=== PATIENT | female | born 1980 | race Caucasian/White ===

== ENCOUNTER 2021-03-19 20:29 | Inpatient (IN) ==
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
[2021-03-19] MEDS ORDERED: 0.9 % SODIUM CHLORIDE 1,000 ML IV ONE ×2 (21:22→22:24)
[2021-03-19] MEDS ORDERED: INSULIN REGULAR, HUMAN 1 UNIT/0.01 ML UNIT IV ONE ×2 (21:22→22:38)
[2021-03-19 21:48] LABS: POC Calcium, Ionized 1.26 mmEq/L (1.16-1.32); POC Creatinine 0.4 mg/dL (0.6-1.2); POC Potassium 3.5 mEql/L (3.3-5.1)
[2021-03-19] MEDS ORDERED: 0.9 % SODIUM CHLORIDE 1,000 ML IV SCH (23:00)
[2021-03-19] MEDS ORDERED: INSULIN REGULAR, HUMAN 50 UNIT in 0.9 % SODIUM CHLORIDE 99.5 ML IV SCH (23:00)
[2021-03-19] MEDS ORDERED: ONDANSETRON 4 MG/2 ML VIAL IV PRN (23:39)
[2021-03-19 23:47] LABS: ABG Methemoglobin 0 % (0.4-1.5); Total Hemoglobin 12.4 gm/Dl (12.0-15.0); VBG Base Excess -16 (-2-2); VBG HCO3 10.4 mmol/L (24.0-28.0); VBG Oxygen Saturation 84.9 % (40.0-70.0); VBG PCO2 25.7 mmHg (41.0-51.0); VBG PH 7.22 U (7.32-7.42); VBG PO2 57.5 mmHg (25.0-40.0); VBG Total CO2 11.2 mmol/L (25.0-29.0)
[2021-03-20] MEDS: DEXTROSE 5%-1/2NS 1,000 ML IV SCH ×3 (00:03→18:26)
[2021-03-20] MEDS: 0.9 % SODIUM CHLORIDE 250 ML IV SCH ×2 (00:05→12:36)
[2021-03-20] MEDS: 0.9 % SODIUM CHLORIDE 10 ML SYRINGE IV SCH ×5 (05:35→21:17)
[2021-03-20 07:38] LABS: Basophils # (Auto) 0.08 K/mcL (0.00-0.30); Basophils % (Auto) 1.2 % (0.0-2.0); Eosinophils # (Auto) 0.18 K/mcL (0.00-0.70); Eosinophils % (Auto) 2.7 % (0.0-7.0); Hematocrit 34.5 % (34.1-44.9); Hemoglobin 12.6 g/dL (11.2-15.7); Lymphocytes # (Auto) 2.53 K/mcL (1.50-4.80); Lymphocytes % (Auto) 38.4 % (15.5-49.0); Mean Corpuscular HGB Conc 36.5 g/dL (31.0-36.0); Mean Platelet Volume 9.1 fL (7.4-10.4); Monocytes # (Auto) 0.74 K/mcL (0.10-0.90); Monocytes % (Auto) 11.2 % (1.0-12.0); Neutrophils % (Auto) 46.5 % (38.0-78.0); Platelet Count 332 K/mcL (140-440); RBC 4.06 M/mcL (3.59-5.38); Red Cell Distribution Width 11.9 % (11.5-14.5); WBC 6.6 K/mcL (4.5-11.0)
[2021-03-20 08:08] LABS: ALT/SGPT 8 U/L (<40); AST/SGOT 9 U/L (<32); Albumin 2.8 gm/dL (3.2-5.2); Albumin/Globulin Ratio 1.3 (1.0-2.3); Alkaline Phosphatase 88 U/L (39-117); Bilirubin,Direct < 0.2 mg/dL (0-0.3); Bilirubin,Total 0.3 mg/dL (0.1-1.0); Blood Urea Nitrogen 7 mg/dL (6-20); Calcium 7.7 mg/dL (8.6-10.4); Carbon Dioxide 14 mmol/L (22-30); Chloride 109 mmol/L (96-108); Globulin 2.2 gm/dL (2.2-3.7); Glomerular Filtration Rate 120; Glucose 91 mg/dL (70-105); Lactate Dehydrogenase 101 U/L (135-225); Phosphorous 1.9 mg/dL (2.5-4.5); Triglycerides 78 mg/dL (<150); Uric Acid 2.5 mg/dL (2.5-8.0)
[2021-03-20] MEDS ORDERED: POTASSIUM CHLORIDE 20 MEQ TABLET PO ONE (08:16)
[2021-03-20] MEDS ORDERED: POTASSIUM CHLORIDE 20 MEQ PACKET PO PRN (08:17)
[2021-03-20] MEDS ORDERED: MAGNESIUM SULFATE 2 GM/50 ML BAG IV ONE (08:17)
[2021-03-20] MEDS ORDERED: BISACODYL 10 MG SUPP.RECT PR PRN (08:17)
[2021-03-20] MEDS ORDERED: MELATONIN 3 MG TABLET PO PRN (08:17)
[2021-03-20] MEDS ORDERED: POLYETHYLENE GLYCOL 3350 17 GM PACKET PO PRN (08:17)
[2021-03-20] MEDS ORDERED: ONDANSETRON 4 MG/2 ML VIAL IV PRN (08:17)
[2021-03-20] MEDS ORDERED: ONDANSETRON 4 MG ODT TABLET SL PRN (08:17)
[2021-03-20] MEDS ORDERED: MAGNESIUM SULFATE 2 GM/50 ML BAG IV PRN (08:17)
[2021-03-20] MEDS ORDERED: ACETAMINOPHEN 325 MG TABLET PO PRN (08:17)
[2021-03-20] MEDS ORDERED: POTASSIUM CHLORIDE 40 MEQ in DEXTROSE 5% IN WATER 500 ML IV PRN (08:17)
[2021-03-20] MEDS ORDERED: ACETAMINOPHEN 650 MG/65 ML BAG IV PRN (08:17)
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
[2021-03-20 08:54] LABS: ABG Methemoglobin 0.3 % (0.4-1.5); Total Hemoglobin 12.6 gm/Dl (12.0-15.0); VBG Base Excess -11 (-2-2); VBG HCO3 14.4 mmol/L (24.0-28.0); VBG Oxygen Saturation 74.8 % (40.0-70.0); VBG PCO2 32.2 mmHg (41.0-51.0); VBG PH 7.27 U (7.32-7.42); VBG PO2 38.8 mmHg (25.0-40.0); VBG Total CO2 15.4 mmol/L (25.0-29.0)
[2021-03-20] MEDS ORDERED: POTASSIUM PHOSPHATE 20 MEQ in DEXTROSE 5% IN WATER 250 ML IV ONE (09:00)
[2021-03-20] MEDS ORDERED: POTASSIUM CHLORIDE 80 MEQ in DEXTROSE 5% IN WATER 1,000 ML IV ONE (09:00)
[2021-03-20] MEDS: DOCUSATE SODIUM 100 MG CAPSULE PO SCH ×2 (09:39→21:16)
--- NOTE | 2021-03-20 10:42 | Internal Med Progress Note ---
SUBJECTIVE Subjective Patient information: Note initiated : 03/20/21 at 10:39 am Service Date, if different from initiated Date: [] Patient: Mary Gardner a 40 y/o F admitted on 03/19/21 for High Blood Sugar. Chief Complaint: [] Interval history: Ms. Gardner is a 40 year old F With a history of type 1 diabetes. She has been on insulin for last 3 years and has had one episode of DKA. Over the last few days she has noted URI symptoms after getting exposed to family members were sick with upper respiratory symptoms. For the last 2 days she has had increased loss of appetite, weakness, unable to eat or drink and associated nausea. She endorses to weakness, lightheadedness, feeling dehydrated. Presents to the ER for evaluation. Initial work-up was consistent with DKA with a pH of 7.19, elevated anion gap and low bicarbonate. Patient was started on insulin drip and subsequently hospitalist service was consulted. At the time of my evaluation patient is alert and oriented. She was able to answer most the questions. She feels slightly anxious. She endorses history as above but denies skipping medications or changing medication doses. She further denies weight loss, diarrhea, bloody stool, hemoptysis, glandular swelling. She had Covid 5 months ago 03/20-patient doing well. Currently on insulin drip. pH improved to 7.27. Potassium 2.7 on replacement, phosphorus 1.9 started placement, continue insulin drip. Will likely transition to subcu insulin once anion gap normalizes and bicarb over 18. Continue ICU care Constitutional Vitals: Vital Signs Temp Pulse Resp BP Pulse Ox 98.6 F 85 22 108/74 95 03/20/21 08:01 03/20/21 09:01 03/20/21 10:01 03/20/21 10:01 03/20/21 10:01 Period Temp Pulse Resp BP Sys/Siddiqi Pulse Ox Last 24 Hr 98.1 F-98.8 F 79-104 14- 93-127/57-99 95-100 Intake and Output 03/19/21 03/20/21 03/20/21 21:59 05:59 13:59 Intake Total 2893 6 Output Total 850 525 Balance 3 -519 Weight 58.06 kg 58.287 kg 57.379 kg Patient Weight 03/21/21 05:59 Weight 57.379 kg alert oriented recent nonlabored breathing No anxiety Nondistended abdomen Intake & Output: Intake & Output 03/19/21 03/20/21 03/20/21 21:59 05:59 13:59 Intake Total 2893 6 Output Total 850 525 Balance 2042 - Weight 58.06 kg 58.287 kg 57.379 kg Intake: IV 2893 6 Sodium Chloride 0.9% 1,000 ml @ 2000 Wide Open IV B[facility] Rx#: [id number] Dextrose 5%-1/2Ns IV Solution 1 858 ,000 ml @ 150 mls/hr IV .[id number] [facility] Rx#:[id number] HumuLIN R 50 UNIT In Sodium 35 6 Chloride 0.9% 99.5 ml @ 1.5 UNIT/HR 3 mls/hr IV DUR [facility] Rx# :[id number] Output: Urine Catheter Amount 525 Void Amount 850 Other: Urine Appearance Clear Urine Color Pale Stool Size Moderate Stool Color Brown Stool Consistency Formed # Voids 1 OBJ DATA Labs CBC & Chem 7: 03/20/21 05:39 03/20/21 05:39 Labs: Abnormal Lab Results 03/20/21 03/20/21 03/20/21 08:32 05:39 05:39 MCHC 36.5 H ABG Methemoglobin 0.3 L VBG pH 7.27 L VBG pCO2 32.2 L VBG pO2 VBG HCO3 14.4 L VBG Total CO2 15.4 L VBG O2 Saturation 74.8 H VBG Base Excess -11 L Carboxyhemoglobin 6.3 H Potassium 2.7 L* Chloride 109 H Carbon Dioxide 14 L POC Total CO2 Creatinine 0.5 L POC Creatinine POC Glucose Calcium 7.7 L Phosphorus 1.9 L Lactate Dehydrogenase 101 L Total Protein 5.0 L Albumin 2.8 L 03/19/21 03/19/21 23:23 21:30 MCHC ABG Methemoglobin 0 L VBG pH 7.22 L VBG pCO2 25.7 L VBG pO2 57.5 H VBG HCO3 10.4 L* VBG Total CO2 11.2 L VBG O2 Saturation 84.9 H VBG Base Excess -16 L Carboxyhemoglobin 4.4 H Potassium Chloride Carbon Dioxide POC Total CO2 11 L Creatinine POC Creatinine 0.4 L POC Glucose 417 H Calcium Phosphorus Lactate Dehydrogenase Total Protein Albumin Meds: Medications Acetaminophen (Acetaminophen 325 Mg Tablet) 650 mg PO Q4-6HP PRN; Protocol PRN Reason: Per Pain Protocol/Fever > 101 Bisacodyl (Bisacodyl 10 Mg Supp.Rect) 10 mg GA Q2-3DAYS PRN PRN Reason: Constipation Diagnostic Test (Pha) (Accu-Chek 1 Each Strip) 1 each FS Q1 [facility] Last Admin: 03/20/21 10:02 Dose: 1 each Documented by: Docusate Sodium (Docusate Sodium 100 Mg Capsule) 100 mg PO BID [facility] Last Admin: 03/20/21 09:39 Dose: Not Given Documented by: Heparin Sodium (Porcine) (Heparin 5,000 Unit/Ml Vial) 5,000 unit SQ Q12 [facility] Insulin Human Regular 50 unit/ (Sodium Chloride) 100 mls @ 3 mls/hr IV DUR [facility]; Protocol Last Titration: 03/20/21 10:02 Dose: 2 unit/hr, 4 mls/hr Documented by: Dextrose/Sodium Chloride (Dextrose 5%-1/2ns Iv Solution) 1,000 mls @ 150 mls/hr IV .Q6H40M [facility] Last Admin: 03/20/21 05:46 Dose: 150 mls/hr Documented by: Sodium Chloride (Sodium Chloride 0.9%) 250 mls @ 20 mls/hr IV .[id number] [facility] Last Admin: 03/20/21 00:05 Dose: 20 mls/hr Documented by: Potassium Chloride 80 meq/ (Dextrose) 1,040 mls @ 130 mls/hr IV ONCE ONE Stop: 03/20/21 16:59 Potassium Chloride 40 meq/ (Dextrose) 520 mls @ 130 mls/hr IV UD PRN PRN Reason: K+ = or < 3.5 Acetaminophen (Ofirmev) 650 mg in 65 mls @ 130 mls/hr IV Q6HP PRN; Protocol PRN Reason: Per Pain Protocol/Fever > 101 Magnesium Sulfate (Magnesium Sulfate) 2 gm in 50 mls @ 50 mls/hr IV UD PRN PRN Reason: MG = or < 1.7 Potassium Phosphate 20 meq/ (Dextrose) 254.5455 mls @ 127.273 mls/hr IV ONCE ONE Stop: 03/20/21 10:59 Last Admin: 03/20/21 09:38 Dose: 127.273 mls/hr Documented by: Iron Carb/Multivit/Sterile Process Coordinator/Folic Acid (Multivit,Ther Iron,Ca,Fa & Min 1 Tablet) 1 tab PO DAILY P[facility] Melatonin (Melatonin 3 Mg Tablet) 3 mg PO HSP PRN PRN Reason: Insomnia Ondansetron HCl (Ondansetron 4 Mg Odt Tablet) 4 mg SL Q4-6HP PRN; Protocol PRN Reason: Nausea And Vomiting Ondansetron HCl (Ondansetron 4 Mg/2 Ml Vial) 4 mg IV Q4-6HP PRN; Protocol PRN Reason: Nausea And Vomiting Polyethylene Glycol (Polyethylene Glycol 3350 17 Gm Packet) 17 gm PO DAILYP PRN PRN Reason: Constipation Potassium Chloride (Potassium Chloride 20 Meq Packet) 40 meq PO DAILYP PRN PRN Reason: K+ < 3.5 Senna/Docusate Sodium (Sennosides/Docusate Sodium 1 Tab Tablet) 1 tab PO HS [facility] Sodium Chloride (0.9 % Sodium Chloride 10 Ml Syringe) 10 ml IV Q8 [facility] Last Admin: 03/20/21 05:35 Dose: Not Given Documented by: Sodium Chloride (0.9 % Sodium Chloride 10 Ml Syringe) 10 ml IV Q8 [facility] ABG Interpretation ABG results: 03/19/21 03/20/21 23:23 08:32 ABG Methemoglobin 0 L 0.3 L VBG pH 7.22 L 7.27 L VBG pCO2 25.7 L 32.2 L VBG pO2 57.5 H 38.8 VBG HCO3 10.4 L* 14.4 L VBG Total CO2 11.2 L 15.4 L VBG O2 Saturation 84.9 H 74.8 H VBG Base Excess -16 L -11 L A/P Narrative A/P Narrative: * DKA-clinically improving with management per guidelines. Continue insulin drip , improved anion gap/bicarb * Hypokalemia continue replacement 120 mg 3 * Low phosphorus continue placement * History anxiety disorder continue BuSpar/sertraline/trazodone * Prophylaxis Heparin Plan * Continue DKA management per protocol * Serial biochemical marker * Potassium and phosphorus replacement * Pre-existing medical condition management on home medications Time Spent With Patient Time: Critical care time Total time spent with greater than 50% in coordination of care (as documented) at patient's floor/unit and/or counseling patient:: Greater than 35 minutes QUALITY VTE Deep Vein Thrombosis/Pulmonary Embolism Present on Admission: No
[2021-03-20] MEDS: MULTIVIT,THER IRON,CA,FA & MIN 1 TABLET PO SCH (11:23)
[2021-03-20] MEDS: HEPARIN 5,000 UNIT/ML VIAL SQ SCH ×2 (11:24→21:17)
[2021-03-20 15:10] LABS: ALT/SGPT 10 U/L (<40); AST/SGOT 10 U/L (<32); Albumin 3.2 gm/dL (3.2-5.2); Albumin/Globulin Ratio 1.3 (1.0-2.3); Alkaline Phosphatase 92 U/L (39-117); Bilirubin,Direct < 0.2 mg/dL (0-0.3); Bilirubin,Total 0.4 mg/dL (0.1-1.0); Blood Urea Nitrogen 7 mg/dL (6-20); Calcium 8.2 mg/dL (8.6-10.4); Carbon Dioxide 16 mmol/L (22-30); Chloride 102 mmol/L (96-108); Globulin 2.5 gm/dL (2.2-3.7); Glomerular Filtration Rate 120; Glucose 171 mg/dL (70-105); Lactate Dehydrogenase 116 U/L (135-225); Phosphorous 1.7 mg/dL (2.5-4.5); Triglycerides 77 mg/dL (<150); Uric Acid 2.1 mg/dL (2.5-8.0)
[2021-03-20] MEDS ORDERED: INSULIN GLARGINE, HUMAN 1 UNIT/0.01 ML SQ SCH (15:53)
[2021-03-20] MEDS: INSULIN GLARGINE, HUMAN 1 UNIT/0.01 ML SQ SCH ×2 (16:24→21:02)
[2021-03-20] MEDS: INSULIN LISPRO 1 UNIT/0.01 ML UNIT SQ SCH ×2 (18:25→21:17)
[2021-03-20] MEDS ORDERED: SENNOSIDES/DOCUSATE SODIUM 1 TAB TABLET PO SCH (21:00)
[2021-03-21] MEDS: 0.9 % SODIUM CHLORIDE 250 ML IV SCH (02:21)
[2021-03-21] MEDS: 0.9 % SODIUM CHLORIDE 10 ML SYRINGE IV SCH ×2 (05:58)
[2021-03-21 07:27] LABS: ALT/SGPT 8 U/L (<40); AST/SGOT 10 U/L (<32); Albumin 2.8 gm/dL (3.2-5.2); Albumin/Globulin Ratio 1.2 (1.0-2.3); Alkaline Phosphatase 86 U/L (39-117); Bilirubin,Direct < 0.2 mg/dL (0-0.3); Bilirubin,Total 0.3 mg/dL (0.1-1.0); Blood Urea Nitrogen 7 mg/dL (6-20); Calcium 8.2 mg/dL (8.6-10.4); Carbon Dioxide 19 mmol/L (22-30); Chloride 103 mmol/L (96-108); Globulin 2.3 gm/dL (2.2-3.7); Glomerular Filtration Rate 120; Glucose 237 mg/dL (70-105); Lactate Dehydrogenase 124 U/L (135-225); Phosphorous 3.2 mg/dL (2.5-4.5); Triglycerides 94 mg/dL (<150); Uric Acid 1.8 mg/dL (2.5-8.0)
[2021-03-21] MEDS: INSULIN LISPRO 1 UNIT/0.01 ML UNIT SQ SCH ×2 (07:41→11:28)
[2021-03-21] MEDS: HEPARIN 5,000 UNIT/ML VIAL SQ SCH (07:45)
[2021-03-21] MEDS: DOCUSATE SODIUM 100 MG CAPSULE PO SCH (07:45)
[2021-03-21] MEDS: MULTIVIT,THER IRON,CA,FA & MIN 1 TABLET PO SCH (07:45)
[2021-03-21] MEDS ORDERED: traZODone HCL 150 MG TABLET PO PRN (08:54)
[2021-03-21] MEDS ORDERED: BUSPIRONE 5 MG PO PRN (08:54)
[2021-03-21 08:57] LABS: Basophils # (Auto) 0.06 K/mcL (0.00-0.30); Basophils % (Auto) 1.3 % (0.0-2.0); Eosinophils # (Auto) 0.12 K/mcL (0.00-0.70); Eosinophils % (Auto) 2.5 % (0.0-7.0); Hemoglobin 13.1 g/dL (11.2-15.7); Lymphocytes # (Auto) 1.86 K/mcL (1.50-4.80); Lymphocytes % (Auto) 39.1 % (15.5-49.0); Mean Cell Volume 84.1 fL (80.0-100.0); Mean Corpuscular HGB Conc 34.2 g/dL (31.0-36.0); Mean Platelet Volume 8.9 fL (7.4-10.4); Monocytes # (Auto) 0.57 K/mcL (0.10-0.90); Neutrophils % (Auto) 45.1 % (38.0-78.0); Platelet Count 298 K/mcL (140-440); RBC 4.09 M/mcL (3.59-5.38); WBC 4.8 K/mcL (4.5-11.0)
[2021-03-21] MEDS ORDERED: SERTRALINE 50 MG TABLET PO SCH (09:00)
[2021-03-21 09:47] LABS: Hemoglobin A1C 12.9 % Hgb (4.0-6.0)
[2021-03-21] MEDS ORDERED: INSULIN LISPRO 1 UNIT/0.01 ML UNIT SQ SCH (11:30)
--- NOTE | 2021-03-21 11:49 | Discharge Summary ---
Discharge Provider Provider Patient information: Note initiated : 03/21/21 at 11:49 am Service Date, if different from initiated Date: [] Patient: Mary Gardner 40 y/o F admitted on 03/19/21 for High Blood Sugar. Chief Complaint: [] Date of admission: 03/19/21 23:48 Discharge date: 03/21/21 Primary care physician: Kesha Paul Consults: 03/19/21 Consult to Physician [CONS] Stat Comment: Consulting Provider: Quentin Pride Reason For Exam: Physician to Consult Discharge Meds Discharge Medications Home Medications buspirone 5 mg tablet 5 mg PO PRN PRN 12/07/15 [History Confirmed 03/20/21 Last Taken Unknown] trazodone 150 mg tablet 150 mg PO HS PRN 02/25/16 [History Confirmed 03/20/21 Last Taken Unknown] insulin glargine 100 unit/mL (3 mL) subcutaneous pen (Lantus Solostar U-100 Insulin) 20 unit SUBCUT HS 03/20/21 [History Confirmed 03/20/21 Last Taken Unknown] insulin lispro 100 unit/mL subcutaneous pen (Humalog KwikPen (U-100) Insulin) 5 unit SUBCUT ACHS 03/20/21 [History Confirmed 03/20/21 Last Taken Unknown] sertraline 25 mg tablet 25 mg PO QDAY 03/20/21 [History Confirmed 03/20/21 Last Taken Unknown] COURSE Hospital Course Hospital course: Ms. Gardner is a 40 year old F With a history of type 1 diabetes. She has been on insulin for last 3 years and has had one episode of DKA. Over the last few days she has noted URI symptoms after getting exposed to family members were sick with upper respiratory symptoms. For the last 2 days she has had increased loss of appetite, weakness, unable to eat or drink and associated nausea. She endorses to weakness, lightheadedness, feeling dehydrated. Presents to the ER for evaluation. Initial work-up was consistent with DKA with a pH of 7.19, elevated anion gap and low bicarbonate. Patient was started on insulin drip and subsequently hospitalist service was consulted. At the time of my evaluation patient is alert and oriented. She was able to answer most the questions. She feels slightly anxious. She endorses history as above but denies skipping medications or changing medication doses. She further denies weight loss, diarrhea, bloody stool, hemoptysis, glandular swelling. She had Covid 5 months ago 03/20-patient doing well. Currently on insulin drip. pH improved to 7.27. Potassium 2.7 on replacement, phosphorus 1.9 started placement, continue insulin drip. Will likely transition to subcu insulin once anion gap normalizes and bicarb over 18. Continue ICU care Discharge diagnosis: Diabetic ketoacidosis Time Spent with Patient Time attestation: Total time spent providing and/or coordinating discharge services: EXAM Constitutional Vitals: Temp Pulse Resp BP Pulse Ox 97.1 F 85 18 107/74 95 03/21/21 00:01 03/20/21 09:01 03/21/21 05:57 03/21/21 05:00 03/21/21 02:00 Discharge Data Data Completed and Pending Labs on day of discharge: Labs from last 24 hours 03/21/21 03/21/21 03/21/21 05:30 05:30 05:30 WBC 4.8 RBC 4.09 Hgb 13.1 Hct 38.0 MCV 84.1 MCH 32.0 MCHC 34.2 RDW 12.0 Plt Count 298 MPV 8.9 Neut % (Auto) 45.1 Lymph % (Auto) 39.1 [place] % (Auto) 12.0 Eos % (Auto) 2.5 Baso % (Auto) 1.3 Lymph # (Auto) 1.86 [place] # (Auto) 0.57 Eos # (Auto) 0.12 Baso # (Auto) 0.06 Absolute Neutrophils 2.15 Sodium 136 Potassium 3.3 Chloride 103 Carbon Dioxide 19 L Anion Gap 14.0 BUN 7 Creatinine 0.5 L GFR Calculation 120 Glucose 237 H Hemoglobin A1c 12.9 H Estim Average Glucose 324 Uric Acid 1.8 L Calcium 8.2 L Phosphorus 3.2 Magnesium 2.1 Total Bilirubin 0.3 Direct Bilirubin < 0.2 GGT 15 AST 10 ALT 8 Alkaline Phosphatase 86 Lactate Dehydrogenase 124 L Total Protein 5.1 L Albumin 2.8 L Globulin 2.3 Albumin/Globulin Ratio 1.2 Triglycerides 94 03/20/21 14:00 WBC RBC Hgb Hct MCV MCH MCHC RDW Plt Count MPV Neut % (Auto) Lymph % (Auto) [place] % (Auto) Eos % (Auto) Baso % (Auto) Lymph # (Auto) [place] # (Auto) Eos # (Auto) Baso # (Auto) Absolute Neutrophils Sodium 130 L Potassium 3.4 Chloride 102 Carbon Dioxide 16 L Anion Gap 12.0 BUN 7 Creatinine 0.5 L GFR Calculation 120 Glucose 171 H Hemoglobin A1c Estim Average Glucose Uric Acid 2.1 L Calcium 8.2 L Phosphorus 1.7 L Magnesium 2.2 Total Bilirubin 0.4 Direct Bilirubin < 0.2 GGT 17 AST 10 ALT 10 Alkaline Phosphatase 92 Lactate Dehydrogenase 116 L Total Protein 5.7 L Albumin 3.2 Globulin 2.5 Albumin/Globulin Ratio 1.3 Triglycerides 77 Discharge Plan Patient/Caregiver Discharge Instructions Activity: increase activity as tolerated Diet: Consistent Carbohydrate Activity Restrictions/Additional Instructions: Admitted for diabetic ketoacidosis. Also dehydration. Prescriptions: Continued buspirone 5 MG tablet 5 mg PO PRN PRN (Reason: Anxiety) 0RF trazodone 150 MG tablet 150 mg PO HS PRN (Reason: Insomnia) 0RF sertraline 25 mg Tablet 25 mg PO QDAY 0RF insulin lispro [Humalog KwikPen Insulin] 100 unit/mL insulin pen 5 unit SUBCUT ACHS 0RF Lantus Solostar U-100 Insulin 100 unit/mL (3 mL) insulin pen 20 unit SUBCUT HS 0RF Follow Up Plan Follow up with: Kesha Paul MD [Primary Care Provider] - Patient Disposition: Home, Self-Care Prognosis: Serious Rehab Potential: Fair I certify that the patient requires SNF services: No Overall status at discharge: patient is progressing back to baseline Discharge Orders: Discharge Order (Routine); Ordered 03/21/21 Ordered By: Quentin HEIN VTE Deep Vein Thrombosis/Pulmonary Embolism Present on Admission: No
[2021-03-21] MEDS ORDERED: NON FORMULARY MEDICATION 1 DOSE MISCELL (Insulin Glargine [Lantus Solostar U-100 Insulin] SUB-Q SCH (21:00)
== END 2021-03-21 12:35 | disposition home or self-care (01) | DRG 639 ==
LOC: ED 20:29 → ICU 23:48
PROVIDERS: ADMIT Internal Medicine; ATTEND Internal Medicine

== ENCOUNTER 2021-08-03 19:13 | Inpatient (IN) ==
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
[2021-08-03] MEDS ORDERED: 0.9 % SODIUM CHLORIDE 1,000 ML IV ONE ×2 (19:21→20:32)
[2021-08-03 19:51] LABS: POC Blood Urea Nitrogen 13 mg/dL (6-20); POC CO2 11 mmol/L (22-30); POC Calcium, Ionized 1.21 mmEq/L (1.16-1.32); POC Chloride 107 mEq/L (96-108); POC Creatinine 0.5 mg/dL (0.6-1.2); POC Glucose, Random 317 mg/dL (70-105); POC Hematocrit 50 % (36-48); POC Potassium 2.8 mEql/L (3.3-5.1); POC Sodium 133 mEq/L (133-145)
[2021-08-03] MEDS ORDERED: POTASSIUM CHLORIDE 20 MEQ TABLET PO ONE (19:57)
[2021-08-03] MEDS ORDERED: POTASSIUM CHLORIDE 40 MEQ in DEXTROSE 5% IN WATER 500 ML IV ONE (19:58)
[2021-08-03] MEDS ORDERED: MAGNESIUM SULFATE 8.12 MEQ in DEXTROSE 5% IN WATER 50 ML IV ONE (20:00)
[2021-08-03 20:44] LABS: Basophils # (Auto) 0.07 K/mcL (0.00-0.30); Basophils % (Auto) 0.9 % (0.0-2.0); Eosinophils # (Auto) 0.03 K/mcL (0.00-0.70); Eosinophils % (Auto) 0.4 % (0.0-7.0); Hematocrit 47.5 % (34.1-44.9); Hemoglobin 17.6 g/dL (11.2-15.7); Lymphocytes # (Auto) 2.24 K/mcL (1.50-4.80); Lymphocytes % (Auto) 27.3 % (15.5-49.0); Mean Corpuscular HGB Conc 37.1 g/dL (31.0-36.0); Mean Platelet Volume 8.7 fL (7.4-10.4); Monocytes % (Auto) 9.8 % (1.0-12.0); Neutrophils % (Auto) 61.6 % (38.0-78.0); Platelet Count 459 K/mcL (140-440); RBC 5.72 M/mcL (3.59-5.38); Red Cell Distribution Width 12.7 % (11.5-14.5); WBC 8.2 K/mcL (4.5-11.0)
[2021-08-03 20:58] LABS: Appearance,Urine HAZY (Clear); Bilirubin,Urine Negative (Negative); Color,Urine YELLOW; Culture Indicated,Urine No; Glucose,Urine (UA) >=500 mg/dL (Negative); Ketones,Urine 80 mg/dL (Negative); Leukocyte Esterase,Urine 25 /uL (Negative); Mucus,Urine FEW /hpf; Nitrate,Urine Negative (Negative); Protein,Urine 100 mg/dL (Negative); Specific Gravity,Urine 1.035 (1.000-1.035); Urine Blood 0.03 mg/dL (Negative); Urine RBC 3 /hpf (0-3); Urine Squamous Epithelial Cell 6 /hpf (0-4); Urine WBC 4 /hpf (0-4); Urobilinogen,Urine Negative
[2021-08-03] MEDS ORDERED: POTASSIUM CHLORIDE 20 MEQ/10 ML VIAL IV ONE (21:29)
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
[2021-08-03] MEDS ORDERED: LACTULOSE 20 GM/30 ML ORAL.SOL PO PRN (23:00)
[2021-08-03] MEDS ORDERED: DEXTROSE 50% 50 ML VIAL IV PRN (23:00)
[2021-08-03] MEDS ORDERED: SENNOSIDES 1 TABLET PO PRN (23:00)
[2021-08-03] MEDS ORDERED: POTASSIUM CHLORIDE 20 MEQ TABLET PO SCH (23:00)
[2021-08-03] MEDS ORDERED: ACETAMINOPHEN 325 MG TABLET PO PRN (23:00)
[2021-08-03] MEDS ORDERED: DEXTROSE 31 GM ORAL.SUSP PO PRN (23:00)
[2021-08-03] MEDS ORDERED: 0.9 % SODIUM CHLORIDE 1,000 ML IV SCH (23:00)
[2021-08-03] MEDS ORDERED: INSULIN GLARGINE, HUMAN 1 UNIT/0.01 ML SQ SCH (23:00)
[2021-08-03] MEDS ORDERED: ONDANSETRON 4 MG/2 ML VIAL IV PRN (23:00)
[2021-08-03] MEDS ORDERED: ONDANSETRON 4 MG/2 ML VIAL ONE (23:20)
[2021-08-03] MEDS ORDERED: INSULIN GLARGINE, HUMAN 1 UNIT/0.01 ML SQ ONE (23:21)
[2021-08-03] MEDS: 0.9 % SODIUM CHLORIDE 10 ML SYRINGE IV SCH (23:41)
[2021-08-04 00:07] LABS: Beta Hydroxybutyrate 5.46 mmol/L (<0.27)
[2021-08-04 00:37] LABS: Albumin 3.4 gm/dL (3.2-5.2); Blood Urea Nitrogen 10 mg/dL (6-20); Calcium 7.3 mg/dL (8.6-10.4); Carbon Dioxide 9 mmol/L (22-30); Chloride 104 mmol/L (96-108); Estimated Average Glucose(eAG) 338 mg/dL; Glomerular Filtration Rate 112; Glucose 301 mg/dL (70-105); Hemoglobin A1C 13.4 % Hgb (4.0-6.0); Phosphorous 1.5 mg/dL (2.5-4.5)
[2021-08-04] MEDS: 0.9 % SODIUM CHLORIDE 250 ML IV SCH ×3 (01:30→15:30)
[2021-08-04] MEDS: INSULIN LISPRO 1 UNIT/0.01 ML UNIT SQ SCH ×15 (01:30→20:25)
[2021-08-04] MEDS ORDERED: INSULIN LISPRO 1 UNIT/0.01 ML UNIT SQ ONE ×2 (01:33→02:22)
[2021-08-04] MEDS ORDERED: POTASSIUM CHLORIDE 20 MEQ TABLET PO ONE (01:38)
[2021-08-04] MEDS ORDERED: POTASSIUM PHOSPHATE 20 MEQ in DEXTROSE 5% IN WATER 250 ML IV ONE (02:41)
[2021-08-04] MEDS ORDERED: 0.9 % SODIUM CHLORIDE 1,000 ML IV SCH (02:46)
[2021-08-04] MEDS ORDERED: INSULIN REGULAR, HUMAN 1 UNIT/0.01 ML UNIT ONE (03:01)
[2021-08-04] MEDS: INSULIN REGULAR, HUMAN 50 UNIT in 0.9 % SODIUM CHLORIDE 99.5 ML IV SCH ×2 (03:02→16:49)
[2021-08-04] MEDS ORDERED: POTASSIUM PHOSPHATE 66 MEQ/15 ML VIAL IV ONE (03:22)
[2021-08-04] MEDS ORDERED: DEXTROSE 5%-NS 1,000 ML IV SCH ×2 (04:15→10:09)
[2021-08-04 04:26] LABS: Albumin 3.3 gm/dL (3.2-5.2); Blood Urea Nitrogen 8 mg/dL (6-20); Calcium 7.9 mg/dL (8.6-10.4); Carbon Dioxide 11 mmol/L (22-30); Chloride 107 mmol/L (96-108); Glomerular Filtration Rate 112; Glucose 190 mg/dL (70-105)
[2021-08-04] MEDS: 0.9 % SODIUM CHLORIDE 10 ML SYRINGE IV SCH ×3 (05:59→20:25)
[2021-08-04] MEDS ORDERED: POTASSIUM PHOSPHATE 40 MEQ in DEXTROSE 5% IN WATER 500 ML IV ONE (07:03)
[2021-08-04] MEDS ORDERED: INSULIN LISPRO 1 UNIT/0.01 ML UNIT SQ SCH (07:30)
[2021-08-04 07:49] LABS: ABG Methemoglobin 0.3 % (0.4-1.5); Total Hemoglobin 15.4 gm/Dl (12.0-15.0); VBG Base Excess -13 (-2-3); VBG HCO3 12.6 mmol/L (24.0-28.0); VBG Oxygen Saturation 84.6 % (40.0-70.0); VBG PCO2 28.9 mmHg (41.0-51.0); VBG PH 7.26 U (7.32-7.42); VBG PO2 50.7 mmHg (25.0-40.0); VBG Total CO2 13.4 mmol/L (25.0-29.0)
[2021-08-04 08:18] LABS: Basophils # (Auto) 0.05 K/mcL (0.00-0.30); Basophils % (Auto) 0.8 % (0.0-2.0); Eosinophils # (Auto) 0.04 K/mcL (0.00-0.70); Eosinophils % (Auto) 0.7 % (0.0-7.0); Hematocrit 38.9 % (34.1-44.9); Hemoglobin 14.6 g/dL (11.2-15.7); Lymphocytes % (Auto) 34.9 % (15.5-49.0); Mean Cell Volume 83.7 fL (80.0-100.0); Mean Corpuscular HGB Conc 37.5 g/dL (31.0-36.0); Mean Platelet Volume 8.4 fL (7.4-10.4); Monocytes # (Auto) 0.67 K/mcL (0.10-0.90); Monocytes % (Auto) 11.1 % (1.0-12.0); Neutrophils % (Auto) 52.5 % (38.0-78.0); Platelet Count 333 K/mcL (140-440); RBC 4.65 M/mcL (3.59-5.38); Red Cell Distribution Width 12.8 % (11.5-14.5)
[2021-08-04] MEDS ORDERED: POTASSIUM CHLORIDE 20 MEQ TABLET PO SCH (09:00)
[2021-08-04 09:11] LABS: Albumin 3.1 gm/dL (3.2-5.2); Calcium 8.3 mg/dL (8.6-10.4); Phosphorous 1.8 mg/dL (2.5-4.5)
[2021-08-04 11:33] LABS: ABG Methemoglobin 0.2 % (0.4-1.5); Total Hemoglobin 14.2 gm/Dl (12.0-15.0); VBG Base Excess -11 (-2-3); VBG HCO3 13.6 mmol/L (24.0-28.0); VBG PCO2 27.9 mmHg (41.0-51.0); VBG PH 7.31 U (7.32-7.42); VBG PO2 47.9 mmHg (25.0-40.0); VBG Total CO2 14.4 mmol/L (25.0-29.0)
[2021-08-04 12:56] LABS: Albumin 2.9 gm/dL (3.2-5.2); Calcium 8.3 mg/dL (8.6-10.4)
[2021-08-04] MEDS ORDERED: DEXTROSE 31 GM ORAL.SUSP PO PRN (13:23)
[2021-08-04] MEDS ORDERED: DEXTROSE 50% 50 ML VIAL IV PRN (13:23)
--- NOTE | 2021-08-04 13:30 | Internal Med Progress Note ---
SUBJECTIVE Subjective Patient information: Note initiated : 08/04/21 at 1:30 pm Service Date, if different from initiated Date: [] Patient: Mary Garnder 41 y/o F admitted on 08/03/21 for High Blood Sugar. Chief Complaint: [] Interval history: Ms. Gardner is a 41 year old female with a history of adult onset insulin- dependent diabetes mellitus who presented to the emergency department struggling to keep her blood sugars controlled and was found to have diabetic ketoacidosis Patient says that she has type 2 diabetes mellitus however body habitus is more consistent with type 1 diabetes mellitus. Patient says that she has never seen an stitching machine operator for further work-up. The patient has had prior admissions for diabetic ketoacidosis. This time the patient says that she has been very stressed out recently and unable to keep her blood sugars controlled with subcutaneous basal bolus insulin. In the emergency department, the patient was found to have an anion gap metabolic acidosis, glucose level of 317, beta hydroxybutyrate was pending, pH of 7.17 on VBG. The patient's potassium level was 2.8 in the ED therefore an insulin infusion had not been started yet. The patient was receiving potassium supplementation. [facility] was consulted for admission. 08/04 Acidosis improved, the patient is tolerating a diet and feels much better. Plan to transition to subcutaneous basal/bolus insulin later today. Physical exam Head: Atraumatic, normal inspection. Eyes: normal appearance, no scleral icterus. Neck: full ROM Respiratory: no respiratory distress. Cardiovascular: normal rate and rhythm, S1, S2. GI/Abdominal: soft, nontender, no guarding. Extremities: full range of motion, nontender. Neurological: CN II-XII intact, intact motor, intact sensation. Psychiatric: normal mood. Skin: warm, normal color Constitutional Vitals: Vital Signs Temp Pulse Resp BP Pulse Ox 98.3 F 94 H 18 110/73 99 08/04/21 12:01 08/04/21 12:01 08/04/21 12:34 08/04/21 12:01 08/04/21 12:01 Period Temp Pulse Resp BP Sys/Siddiqi Pulse Ox Last 24 Hr 97.5 F-98.3 F 83-114 11-34 96-130/59-96 98-100 Intake and Output 08/03/21 08/04/2122 21:59 05:59 13:59 Intake Total 1052 2538 2568.5455 Output Total 2049 999 Balance 5326 129 8479.5455 Weight 53.524 kg 55.934 kg Intake & Output: Intake & Output 08/03/21 08/04/21 08/04/21 21:59 05:59 13:59 Intake Total 1052 2538 2568.5455 Output Total 2049 999 Balance 8271 668 7106.5455 Weight 53.524 kg 55.934 kg Intake: IV 1052 2098 888.5455 Sodium Chloride 0.9% 1,000 ml @ 1000 1573 125 mls/hr IV .Q8H [facility] Rx#: [id number] Dextrose 5%-Ns IV Solution 1, 610 000 ml @ 100 mls/hr IV .Q10H [facility] Rx#:[id number] HumuLIN R 50 UNIT In Sodium 5 24 Chloride 0.9% 99.5 ml @ Per Protocol IV DUR [facility] Rx#: [id number] Magnesium Sulfate 8.12 Meq In 52 Dextrose 5% in Water 50 ml @ 52 mls/hr IV ONCE ONE Rx#: [id number] Potassium Chloride 40 Meq In 520 Dextrose 5% in Water 500 ml @ 130 mls/hr IV ONCE ONE Rx#: [id number] Potassium Phosphate 20 Meq In 254.5455 Dextrose 5% in Water 250 ml @ 127.273 mls/hr IV ONCE ONE Rx#: [id number] Oral 440 1680 Output: Void Amount 2049 999 Other: Meal Lunch Percent of Meal Consumed 100% Feeding Ability Independent Urine Appearance Clear Clear Urine Color Dark Yellow Bright Yellow Stool Size Small Stool Color Brown Stool Consistency Formed OBJ DATA Labs CBC & Chem 7: 08/04/21 07:19 08/04/21 11:00 Labs: Abnormal Lab Results 08/04/21 08/04/21 08/04/21 11:00 11:00 07:19 RBC Hgb Hct POC Hct MCHC Plt Count ABG Methemoglobin 0.2 L 0.3 L VBG pH 7.31 L 7.26 L VBG pCO2 27.9 L 28.9 L VBG pO2 47.9 H 50.7 H VBG HCO3 13.6 L 12.6 L VBG Total CO2 14.4 L 13.4 L VBG O2 Saturation 86.0 H 84.6 H VBG Base Excess -11 L -13 L Carboxyhemoglobin 3.3 H 6.1 H Total Hemoglobin 15.4 H Sodium 129 L POC Potassium Carbon Dioxide 14 L POC Total CO2 Creatinine POC Creatinine Glucose 330 H POC Glucose Hemoglobin A1c Calcium 8.3 L Phosphorus Albumin 2.9 L Beta-Hydroxybutyrate Urine Appearance Urine Protein Urine Glucose (UA) Urine Ketones Ur Leukocyte Esterase Ur Squamous Epith Cells Urine Mucus 08/04/21 08/04/21 08/04/21 07:19 07:19 03:30 RBC Hgb Hct POC Hct MCHC 37.5 H Plt Count ABG Methemoglobin VBG pH VBG pCO2 VBG pO2 VBG HCO3 VBG Total CO2 VBG O2 Saturation VBG Base Excess Carboxyhemoglobin Total Hemoglobin Sodium 132 L 131 L POC Potassium Carbon Dioxide 9 L* 11 L POC Total CO2 Creatinine 0.5 L POC Creatinine Glucose 193 H 190 H POC Glucose Hemoglobin A1c Calcium 8.3 L 7.9 L Phosphorus 1.8 L 1.0 L Albumin 3.1 L Beta-Hydroxybutyrate Urine Appearance Urine Protein Urine Glucose (UA) Urine Ketones Ur Leukocyte Esterase Ur Squamous Epith Cells Urine Mucus 08/04/21 08/03/21 08/03/21 02:13 23:15 19:50 RBC Hgb Hct POC Hct MCHC Plt Count ABG Methemoglobin VBG pH 7.16 L* VBG pCO2 VBG pO2 VBG HCO3 VBG Total CO2 VBG O2 Saturation VBG Base Excess Carboxyhemoglobin Total Hemoglobin Sodium 128 L POC Potassium Carbon Dioxide 9 L* POC Total CO2 Creatinine POC Creatinine Glucose 301 H POC Glucose Hemoglobin A1c 13.4 H Calcium 7.3 L Phosphorus 1.5 L Albumin Beta-Hydroxybutyrate Urine Appearance Hazy A Urine Protein 100 A Urine Glucose (UA) >=500 A Urine Ketones 80 A Ur Leukocyte Esterase 25 A Ur Squamous Epith Cells 6 H Urine Mucus Few A 08/03/21 08/03/21 19:30 19:30 RBC 5.72 H Hgb 17.6 H Hct 47.5 H POC Hct 50 H MCHC 37.1 H Plt Count 459 H ABG Methemoglobin VBG pH VBG pCO2 VBG pO2 VBG HCO3 VBG Total CO2 VBG O2 Saturation VBG Base Excess Carboxyhemoglobin Total Hemoglobin Sodium POC Potassium 2.8 L* Carbon Dioxide POC Total CO2 11 L Creatinine POC Creatinine 0.5 L Glucose POC Glucose 317 H Hemoglobin A1c Calcium Phosphorus Albumin Beta-Hydroxybutyrate 5.46 H Urine Appearance Urine Protein Urine Glucose (UA) Urine Ketones Ur Leukocyte Esterase Ur Squamous Epith Cells Urine Mucus Meds: Medications Acetaminophen (Acetaminophen 325 Mg Tablet) 650 mg PO Q6HP PRN; Protocol PRN Reason: Per Pain Protocol/Fever > 101 Last Admin: 08/04/21 09:07 Dose: 650 mg Documented by: Buspirone HCl (Buspirone 5 Mg Tablet) 5 mg PO DAILY PEREZ Dextrose (Dextrose 50% 50 Ml Vial) 0 ml IV UD PRN PRN Reason: Per Sliding Scale Dextrose (Dextrose 50% 50 Ml Vial) 0 ml IV UD PRN PRN Reason: Per Sliding Scale Diagnostic Test (Pha) (Accu-Chek 1 Each Strip) 1 each FS Q1 PEREZ Last Admin: 08/04/21 13:07 Dose: 1 each Documented by: Diagnostic Test (Pha) (Accu-Chek 1 Each Strip) 1 each FS ACHS PEREZ Glucose (Dextrose 31 Gm Oral.Susp) 15 gm PO PRN PRN PRN Reason: Hypoglycemia Glucose (Dextrose 31 Gm Oral.Susp) 15 gm PO PRN PRN PRN Reason: Hypoglycemia Insulin Human Regular 50 unit/ (Sodium Chloride) 100 mls @ 0 mls/hr IV DUR [facility]; Protocol Last Titration: 08/04/21 11:03 Dose: 4.75 unit/hr, 9.5 mls/hr Documented by: Sodium Chloride (Sodium Chloride 0.9%) 250 mls @ 20 mls/hr IV .[id number] PEREZ Last Admin: 08/04/21 01:30 Dose: 20 mls/hr Documented by: Insulin Glargine (Insulin Glargine, Human 1 Unit/0.01 Ml) 50 unit SQ HS PEREZ Insulin Human Lispro (Insulin Lispro 1 Unit/0.01 Ml Unit) 0 unit SQ ACHS PEREZ; Protocol Lactulose (Lactulose 20 Gm/30 Ml Oral.Ann) 10 gm PO DAILYP PRN PRN Reason: Constipation Ondansetron HCl (Ondansetron 4 Mg/2 Ml Vial) 4 mg IV Q4HP PRN; Protocol PRN Reason: Nausea And Vomiting Last Admin: 08/03/21 23:43 Dose: 4 mg Documented by: Liraglutide [Victoza 2-Obi] 0.6 Mg/0.1 Ml (18 Mg/ 1.2 dose SUB-Q DAILY PEREZ Senna (Sennosides 1 Tablet) 2 tab PO HSP PRN PRN Reason: Constipation Sertraline HCl (Sertraline 25 Mg Tablet) 50 mg PO QDAY [facility] Sodium Chloride (0.9 % Sodium Chloride 10 Ml Syringe) 10 ml IV Q8 PEREZ Last Admin: 08/04/21 05:59 Dose: 10 ml Documented by: ABG Interpretation ABG results: 08/04/21 08/04/21 08/04/21 02:13 07:19 11:00 ABG Methemoglobin 0.3 L 0.2 L VBG pH 7.16 L* 7.26 L 7.31 L VBG pCO2 28.9 L 27.9 L VBG pO2 50.7 H 47.9 H VBG HCO3 12.6 L 13.6 L VBG Total CO2 13.4 L 14.4 L VBG O2 Saturation 84.6 H 86.0 H VBG Base Excess -13 L -11 L A/P Narrative A/P Narrative: Assessment: 41 year old female with a history of insulin-dependent diabetes mellitus who presented to the emergency department struggling to keep her blood sugars controlled and was found to have diabetic ketoacidosis as well as a hypokalemia. #Resolving diabetic ketoacidosis #Resolved hypokalemia #Improved odynophagia #Insulin-dependent diabetes mellitus Plan -Anticipate transition from insulin infusion to subcutaneous insulin today. -Lantus 50 units HS, previously taking 40 units HS. -Will start humalog SSI high dose today then adjust as needed. -Islet cell antibody panel. -Discontinue IV fluid. -Consistent carbohydrate diet. -critical care educator consult. -CODE STATUS: Full -Disposition: Home when stable. Consider referral to endocrinology for further evaluation and management. Time Spent With Patient Time: Total time spent is greater than 50% in coordination of care (as documented) at patient's floor/unit and/or counseling patient: QUALITY VTE Deep Vein Thrombosis/Pulmonary Embolism Present on Admission: No
[2021-08-04 15:23] LABS: ABG Methemoglobin 0.1 % (0.4-1.5); Total Hemoglobin 14.4 gm/Dl (12.0-15.0); VBG Base Excess -9 (-2-3); VBG Oxygen Saturation 91.9 % (40.0-70.0); VBG PCO2 27.7 mmHg (41.0-51.0); VBG PH 7.35 U (7.32-7.42); VBG PO2 69.7 mmHg (25.0-40.0); VBG Total CO2 15.8 mmol/L (25.0-29.0)
[2021-08-04 15:59] LABS: Calcium 8.3 mg/dL (8.6-10.4); Phosphorous 3.1 mg/dL (2.5-4.5)
[2021-08-04] MEDS ORDERED: INSULIN GLARGINE, HUMAN 1 UNIT/0.01 ML SQ SCH ×2 (21:00)
[2021-08-05] MEDS: 0.9 % SODIUM CHLORIDE 250 ML IV SCH (01:08)
[2021-08-05] MEDS: 0.9 % SODIUM CHLORIDE 10 ML SYRINGE IV SCH (05:58)
[2021-08-05] MEDS: INSULIN LISPRO 1 UNIT/0.01 ML UNIT SQ SCH (07:26)
[2021-08-05] MEDS ORDERED: INSULIN LISPRO 1 UNIT/0.01 ML UNIT SQ SCH ×5 (07:30→11:30)
[2021-08-05 07:36] LABS: ALT/SGPT 8 U/L (<40); AST/SGOT 9 U/L (<32); Albumin 2.8 gm/dL (3.2-5.2); Albumin/Globulin Ratio 1.3 (1.0-2.3); Alkaline Phosphatase 88 U/L (39-117); Bilirubin,Direct < 0.2 mg/dL (0-0.3); Bilirubin,Total 0.3 mg/dL (0.1-1.0); Blood Urea Nitrogen 18 mg/dL (6-20); Carbon Dioxide 23 mmol/L (22-30); Chloride 105 mmol/L (96-108); Globulin 2.2 gm/dL (2.2-3.7); Glomerular Filtration Rate 119; Glucose 186 mg/dL (70-105); Lactate Dehydrogenase 105 U/L (135-225); Phosphorous 2.9 mg/dL (2.5-4.5); Triglycerides 95 mg/dL (<150); Uric Acid 1.5 mg/dL (2.5-8.0)
[2021-08-05] MEDS: POTASSIUM CHLORIDE 20 MEQ TABLET PO SCH ×2 (07:47→11:54)
[2021-08-05] MEDS ORDERED: busPIRone 5 MG TABLET PO SCH (09:00)
[2021-08-05] MEDS ORDERED: SERTRALINE 50 MG TABLET PO SCH (09:00)
[2021-08-05] MEDS ORDERED: LIRAGLUTIDE SUB-Q SCH (09:00)
[2021-08-05 09:04] LABS: Basophils # (Auto) 0.04 K/mcL (0.00-0.30); Basophils % (Auto) 0.8 % (0.0-2.0); Eosinophils # (Auto) 0.12 K/mcL (0.00-0.70); Eosinophils % (Auto) 2.4 % (0.0-7.0); Hemoglobin 13.7 g/dL (11.2-15.7); Lymphocytes # (Auto) 1.96 K/mcL (1.50-4.80); Lymphocytes % (Auto) 39.8 % (15.5-49.0); Mean Platelet Volume 8.8 fL (7.4-10.4); Monocytes # (Auto) 0.65 K/mcL (0.10-0.90); Monocytes % (Auto) 13.2 % (1.0-12.0); Neutrophils % (Auto) 43.8 % (38.0-78.0); Platelet Count 305 K/mcL (140-440); RBC 4.39 M/mcL (3.59-5.38); Red Cell Distribution Width 12.9 % (11.5-14.5); WBC 4.9 K/mcL (4.5-11.0)
--- NOTE | 2021-08-05 12:51 | Discharge Summary ---
Discharge Provider Provider Patient information: Note initiated : 08/05/21 at 12:48 pm Service Date, if different from initiated Date: [] Patient: Mary Gardner 41 y/o F admitted on 08/03/21 for High Blood Sugar. Chief Complaint: [] Date of admission: 08/03/21 22:44 Discharge date: 08/05/21 Primary care physician: Elva Benavidez PA-C Consults: 08/03/21 Consult to Physician [CONS] Stat Comment: Consulting Provider: Crow Lima Reason For Exam: Physician to Consult Discharge Meds Discharge Medications Home Medications buspirone 5 mg tablet 5 mg PO DAILY 12/07/15 [History Confirmed 08/03/21 Last Ta venkat Unknown] sertraline 25 mg tablet 50 mg PO QDAY 03/20/21 [History Confirmed 08/03/21 Last Taken Unknown] methocarbamol 750 mg tablet 750 mg PO Q8H #20 tab 07/27/21 [Rx Confirmed 08/03/21 Last Taken Unknown] trazodone 150 mg PO HS 08/03/21 [History Confirmed 08/03/21 Last Taken Unknown] liraglutide 0.6 mg/0.1 mL (18 mg/3 mL) subcutaneous pen injector (Victoza 2-Obi) 1.2 mg SUBCUT DAILY 08/04/21 [History Confirmed 08/04/21 Last Taken Unknown] insulin glargine 100 unit/mL (3 mL) subcutaneous pen (Lantus Solostar U-100 Insulin) 50 unit (0.5 mL) SUBCUT QAM #15 ml 08/05/21 [Rx Last Taken Unknown] insulin lispro 100 unit/mL subcutaneous pen (Humalog KwikPen (U-100) Insulin) See Protocol SUBCUT TID #15 ml 08/05/21 [Rx Last Taken Unknown] insulin lispro 100 unit/mL subcutaneous pen (Humalog KwikPen (U-100) Insulin) See Rx Instructions .ROUTE .COMPLEX #15 ml 08/05/21 [Rx Last Taken Unknown] COURSE Hospital Course Hospital course: Ms. Gardner is a 41 year old female with a history of adult onset insulin- dependent diabetes mellitus who presented to the emergency department struggling to keep her blood sugars controlled and was found to have diabetic ketoacidosis Patient says that she has type 2 diabetes mellitus however body habitus is more consistent with type 1 diabetes mellitus. Patient says that she has never seen an it operations manager for further work-up. The patient has had prior admissions for diabetic ketoacidosis. This time the patient says that she has been very stressed out recently and unable to keep her blood sugars controlled with subcutaneous basal bolus insulin. In the emergency department, the patient was found to have an anion gap metabolic acidosis, glucose level of 317, beta hydroxybutyrate was pending, pH of 7.17 on VBG. The patient's potassium level was 2.8 in the ED therefore an insulin infusion had not been started yet. The patient was receiving potassium supplementation. Hospital medicine was consulted for admission. 08/04 Acidosis improved, the patient is tolerating a diet and feels much better. Plan to transition to subcutaneous basal/bolus insulin later today. 08/05 Patient had hypokalemia in the morning, replaced. The patient received education from the supervisor record press, successfully navigated carbohydrate counting and bolus insulin dosing with meals. The patient was discharged to home on a basal/bolus subcutaneous insulin regimen as follows: Lantus 50 units in the morning, Humalog 1 unit to 8 g carbohydrate with meals, Humalog medium dose justina ection sliding scale 3 times daily. Follow-up with primary care provider for further management of diabetes mellitus. Note that hemoglobin A1c was 13.4 during this hospitalization. Follow-up pending islet cell antibody panel. Physical exam Head: Atraumatic, normal inspection. Eyes: normal appearance, no scleral icterus. Neck: full ROM Respiratory: no respiratory distress. Cardiovascular: normal rate and rhythm, S1, S2. GI/Abdominal: soft, nontender, no guarding. Extremities: full range of motion, nontender. Neurological: CN II-XII intact, intact motor, intact sensation. Psychiatric: normal mood. Skin: warm, normal color Discharge diagnosis: Diabetic ketoacidosis Time Spent with Patient Time attestation: Total time spent providing and/or coordinating discharge services: EXAM Constitutional Vitals: Temp Pulse Resp BP Pulse Ox 97.4 F 82 19 96/72 98 08/05/21 12:01 08/05/21 12:08/05/21 12:01 08/05/21 12:08/05/21 12:01 Discharge Data Data Completed and Pending Labs on day of discharge: Labs from last 24 hours 04/12/1908/05/21 08/04/21 05:24 05:23 14:57 WBC 4.9 RBC 4.39 Hgb 13.7 Hct 37.0 MCV 82.0 MCH 31.2 MCHC 37.0 H RDW 12.9 Plt Count 305 MPV 8.8 Neut % (Auto) 43.8 Lymph % (Auto) 39.8 [place] % (Auto) 13.2 H Eos % (Auto) 2.4 Baso % (Auto) 0.8 Lymph # (Auto) 1.96 [place] # (Auto) 0.65 Eos # (Auto) 0.12 Baso # (Auto) 0.04 Absolute Neutrophils 2.15 ABG Methemoglobin 0.1 L VBG pH 7.35 VBG pCO2 27.7 L VBG pO2 69.7 H VBG HCO3 15.0 L VBG Total CO2 15.8 L VBG O2 Saturation 91.9 H VBG Base Excess -9 L Carboxyhemoglobin 3.1 H Total Hemoglobin 14.4 Sodium 135 Potassium 2.7 L* Chloride 105 Carbon Dioxide 23 Anion Gap 7.0 L BUN 18 Creatinine 0.5 L GFR Calculation 119 Glucose 186 H Uric Acid 1.5 L Calcium 8.0 L Phosphorus 2.9 Magnesium 2.1 Total Bilirubin 0.3 Direct Bilirubin < 0.2 GGT 13 AST 9 ALT 8 Alkaline Phosphatase 88 Lactate Dehydrogenase 105 L Total Protein 5.0 L Albumin 2.8 L Globulin 2.2 Albumin/Globulin Ratio 1.3 Triglycerides 95 08/04/21 08/04/21 14:57 11:00 WBC RBC Hgb Hct MCV MCH MCHC RDW Plt Count MPV Neut % (Auto) Lymph % (Auto) [place] % (Auto) Eos % (Auto) Baso % (Auto) Lymph # (Auto) [place] # (Auto) Eos # (Auto) Baso # (Auto) Absolute Neutrophils ABG Methemoglobin VBG pH VBG pCO2 VBG pO2 VBG HCO3 VBG Total CO2 VBG O2 Saturation VBG Base Excess Carboxyhemoglobin Total Hemoglobin Sodium 130 L 129 L Potassium 3.6 4.1 Chloride 103 104 Carbon Dioxide 16 L 14 L Anion Gap 11.0 11.0 BUN 16 10 Creatinine 0.6 0.6 GFR Calculation 112 112 Glucose 286 H 330 H Uric Acid Calcium 8.3 L 8.3 L Phosphorus 3.1 3.0 Magnesium 2.0 2.0 Total Bilirubin Direct Bilirubin GGT AST ALT Alkaline Phosphatase Lactate Dehydrogenase Total Protein Albumin 3.0 L 2.9 L Globulin Albumin/Globulin Ratio Triglycerides Discharge Plan Patient/Caregiver Discharge Instructions Activity: increase activity as tolerated Diet: Consistent Carbohydrate Prescriptions: New Lantus Solostar U-100 Insulin 100 unit/mL (3 mL) insulin pen 50 unit subcut QAM Qty: 15 10RF insulin lispro [Humalog KwikPen Insulin] 100 unit/mL insulin pen See Rx Instructions .ROUTE .COMPLEX Qty: 15 10RF Rx Instructions: Take with meals and snacks as follows: 1 unit of Humalog per 8 grams of carbohydrates consumed. insulin lispro [Humalog KwikPen Insulin] 100 unit/mL insulin pen See Protocol unit subcut TID Qty: 15 10RF Protocol: Insulin Sliding Scale, Med Condition: HUMALOG/NOVALOG SC SLIDING Dose/Route: SCALE Condition: FSBS < 70 Dose/Route: Give 4 Oz juice, or 15gm oral Instruction: Glucose, or 25ml D50W IV if Dose/Route: unable to take PO. Recheck in Instruction: 15 min and repeat if FSBS < 70 Condition: FSBS 71-140 Dose/Route: NO COVERAGE Condition: FSBS 141-170 Dose/Route: 2 UNITS Condition: FSBS 171-200 Dose/Route: 4 UNITS Condition: FSBS 201-250 Dose/Route: 6 UNITS Condition: FSBS 251-300 Dose/Route: 8 UNITS Condition: FSBS 301-350 Dose/Route: 10 UNITS Condition: FSBS 351-400 Dose/Route: 12 UNITS Condition: FSBS > 400 Dose/Route: 14 UNITS; REPEAT Q2H X2 Instruction: CONTINUE FOLLOWING SLIDING Condition: SCALE; IF STILL > 400; CALL Dose/Route: PHYSICIAN Continued methocarbamol 750 mg tablet 750 mg PO Q8H Qty: 20 0RF buspirone 5 MG tablet 5 mg PO DAILY 0RF sertraline 25 mg Tablet 50 mg PO QDAY 0RF trazodone 150 mg PO HS 0RF Victoza 2-Obi 0.6 mg/0.1 mL (18 mg/3 mL) pen injector 1.2 mg subcut DAILY 0RF Discontinued Lantus Solostar U-100 Insulin 100 unit/mL (3 mL) insulin pen 40 unit SUBCUT HS 0RF Humalog U-100 Insulin 100 unit/mL cartridge 5 unit subcut TID Qty: 3 0RF Follow Up Plan Follow up with: Elva Benavidez PA-C [Primary Care Provider] - 08/10/21 9:20 am (Please check in 10 minutes early) Patient Disposition: Home, Self-Care Overall status at discharge: patient is back to baseline Discharge Orders: Discharge Order (Routine); Ordered 08/05/21 Ordered By: Crow HEIN VTE Deep Vein Thrombosis/Pulmonary Embolism Present on Admission: No
[2021-08-16 21:36] LABS: ISLET CELL ANTIBODY SCREEN NEGATIVE (NEGATIVE)
== END 2021-08-05 13:30 | disposition home or self-care (01) | DRG 639 ==
LOC: ED 19:13 → ICU 22:44
PROVIDERS: ADMIT Internal Medicine; ATTEND Internal Medicine

== ENCOUNTER 2024-03-28 16:49 | Inpatient (IN) ==
[2024-03-28 17:31] LABS: Basophils # (Auto) 0.08 K/mcL (0.00-0.30); Eosinophils # (Auto) 0.02 K/mcL (0.00-0.70); Eosinophils % (Auto) 0.2 % (0.0-7.0); Hemoglobin 15.1 g/dL (11.2-15.7); Lymphocytes # (Auto) 2.92 K/mcL (1.50-4.80); Lymphocytes % (Auto) 34.8 % (15.5-49.0); Mean Platelet Volume 8.7 fL (8.8-12.5); Monocytes # (Auto) 0.61 K/mcL (0.10-0.90); Monocytes % (Auto) 7.3 % (1.0-12.0); Neutrophils % (Auto) 56.6 % (38.0-78.0); Platelet Count 462 K/mcL (140-440); RBC 5.06 M/mcL (3.59-5.38); Red Cell Distribution Width 12.3 % (11.5-14.5); WBC 8.4 K/mcL (4.5-11.0)
[2024-03-28] MEDS: 0.9 % SODIUM CHLORIDE 1,000 ML IV ONE (17:32)
[2024-03-28 17:54] LABS: ALT/SGPT 16 U/L (<40); AST/SGOT 11 U/L (<32); Albumin 4.6 gm/dL (3.2-5.2); Albumin/Globulin Ratio 1.5 (1.0-2.3); Alkaline Phosphatase 126 U/L (39-117); Bilirubin,Total 0.5 mg/dL (0.1-1.0); Blood Urea Nitrogen 17 mg/dL (6-20); Calcium 9.3 mg/dL (8.6-10.4); Carbon Dioxide 9 mmol/L (22-30); Chloride 90 mmol/L (96-108); Globulin 3.1 gm/dL (2.2-3.7); Glomerular Filtration Rate 77; Glucose 497 mg/dL (70-105); Potassium 4.4 mmol/L (3.3-5.1); Sodium 125 mmol/L (133-145)
[2024-03-28 18:25] LABS: Appearance,Urine Clear (Clear); Bilirubin,Urine Negative (Negative); Color,Urine Yellow; Glucose,Urine (UA) 500 mg/dL (Negative); Ketones,Urine >=160 mg/dL (Negative); Leukocyte Esterase,Urine Negative /uL (Negative); Nitrate,Urine Negative (Negative); Protein,Urine Negative (Negative); Specific Gravity,Urine 1.025 (1.000-1.035); Urine Blood Large ery/mcL (Negative); Urine RBC 0 /hpf (0-3); Urine Squamous Epithelial Cell 2 /hpf (0-4); Urine WBC 0 /hpf (0-4); Urobilinogen,Urine Normal
[2024-03-28] MEDS: INSULIN REGULAR, HUMAN 50 UNIT in 0.9 % SODIUM CHLORIDE 99.5 ML IV SCH (19:00)
[2024-03-28 19:29] LABS: Beta Hydroxybutyrate 8.07 mmol/L (<0.27)
[2024-03-28] MEDS ORDERED: ONDANSETRON 4 MG/2 ML VIAL IV PRN (19:35)
[2024-03-28] MEDS ORDERED: INSULIN REGULAR, HUMAN 50 UNIT in 0.9 % SODIUM CHLORIDE 99.5 ML IV SCH (19:35)
[2024-03-28] MEDS ORDERED: IPRATROPIUM/ALBUTEROL 3 ML AMPUL.NEB NEB PRN (19:35)
[2024-03-28] MEDS ORDERED: SENNOSIDES 1 TABLET PO PRN (19:35)
[2024-03-28] MEDS ORDERED: PROMETHAZINE 25 MG/ML VIAL IV PRN (19:35)
[2024-03-28] MEDS: POTASSIUM CHLORIDE 20 MEQ/10 ML VIAL IV ONE (20:06)
[2024-03-28] MEDS: 0.45 % SODIUM CHLORIDE 1,000 ML IV SCH (20:08)
[2024-03-28] MEDS: NACL 0.9% W/KCL 20MEQ 1,000 ML IV SCH (20:17)
[2024-03-28] MEDS: DEXTROSE 5%-1/2NS W/20MEQ KCL 1,000 ML IV SCH (20:18)
[2024-03-28 20:28] LABS: ABG Methemoglobin 0.3 % (0.4-1.5); Total Hemoglobin 11.9 gm/Dl (12.0-15.0); VBG Base Excess -19 (-2-3); VBG HCO3 6.9 mmol/L (24.0-28.0); VBG Oxygen Saturation 89.3 % (40.0-70.0); VBG PCO2 18.6 mmHg (41.0-51.0); VBG PH 7.19 U (7.32-7.42); VBG PO2 118.5 mmHg (25.0-40.0); VBG Total CO2 7.5 mmol/L (25.0-29.0)
[2024-03-28 20:43] LABS: Hemoglobin A1C 11.9 % Hgb (4.0-6.0)
[2024-03-28] MEDS: FAMOTIDINE/PF 20 MG/2 ML VIAL IV SCH (21:22)
[2024-03-28] MEDS: traZODone HCL 50 MG TABLET PO SCH (21:22)
[2024-03-28] MEDS: DOCUSATE SODIUM 100 MG CAPSULE PO SCH (21:22)
[2024-03-28] MEDS: 0.9 % SODIUM CHLORIDE 10 ML SYRINGE IV SCH (21:23)
[2024-03-28] MEDS: GABAPENTIN 400 MG CAPSULE PO SCH (21:25)
[2024-03-29] MEDS: METOCLOPRAMIDE 10 MG/2 ML VIAL IV SCH (00:26)
[2024-03-29 01:13] LABS: Blood Urea Nitrogen 12 mg/dL (6-20); Calcium 8.5 mg/dL (8.6-10.4); Carbon Dioxide 15 mmol/L (22-30); Chloride 106 mmol/L (96-108); Glomerular Filtration Rate 110; Glucose 152 mg/dL (70-105); Potassium 3.6 mmol/L (3.3-5.1); Sodium 132 mmol/L (133-145)
[2024-03-29 06:32] LABS: Basophils # (Auto) 0.07 K/mcL (0.00-0.30); Basophils % (Auto) 1.4 % (0.0-2.0); Eosinophils # (Auto) 0.09 K/mcL (0.00-0.70); Eosinophils % (Auto) 1.8 % (0.0-7.0); Hematocrit 37.5 % (34.1-44.9); Hemoglobin 13.5 g/dL (11.2-15.7); Lymphocytes # (Auto) 1.88 K/mcL (1.50-4.80); Lymphocytes % (Auto) 36.6 % (15.5-49.0); Mean Cell Volume 83.5 fL (80.0-100.0); Mean Platelet Volume 8.4 fL (8.8-12.5); Monocytes # (Auto) 0.62 K/mcL (0.10-0.90); Monocytes % (Auto) 12.1 % (1.0-12.0); Neutrophils % (Auto) 48.1 % (38.0-78.0); Platelet Count 341 K/mcL (140-440); RBC 4.49 M/mcL (3.59-5.38); Red Cell Distribution Width 12.7 % (11.5-14.5); WBC 5.1 K/mcL (4.5-11.0)
[2024-03-29 06:35] LABS: Phosphorous 2.7 mg/dL (2.5-4.5)
[2024-03-29 06:48] LABS: Blood Urea Nitrogen 10 mg/dL (6-20); Calcium 8.6 mg/dL (8.6-10.4); Carbon Dioxide 16 mmol/L (22-30); Chloride 106 mmol/L (96-108); Glomerular Filtration Rate 110; Glucose 147 mg/dL (70-105); Potassium 4.1 mmol/L (3.3-5.1); Sodium 133 mmol/L (133-145)
[2024-03-29] MEDS ORDERED: DEXTROSE 31 GM ORAL.SUSP PO PRN (08:12)
[2024-03-29] MEDS ORDERED: DEXTROSE 50% 50 ML VIAL IV PRN (08:12)
[2024-03-29] MEDS ORDERED: METOCLOPRAMIDE 10 MG/2 ML VIAL IV PRN (08:16)
[2024-03-29] MEDS: NAPROXEN 250 MG TABLET PO SCH (08:18)
[2024-03-29] MEDS: INSULIN GLARGINE, HUMAN 1 UNIT/0.01 ML SQ SCH (08:29)
[2024-03-29] MEDS: SERTRALINE 50 MG TABLET PO SCH (10:05)
[2024-03-29] MEDS: GABAPENTIN 300 MG CAPSULE PO SCH (10:06)
[2024-03-29] MEDS: ENOXAPARIN 40 MG/0.4 ML SYRINGE SQ SCH (10:06)
[2024-03-29] MEDS: busPIRone 5 MG TABLET PO SCH (10:06)
[2024-03-29] MEDS: INSULIN LISPRO 1 UNIT/0.01 ML UNIT SQ SCH (12:02)
[2024-03-30] MEDS: NAPROXEN 250 MG TABLET PO PRN (05:46)
[2024-03-30 05:56] LABS: Basophils # (Auto) 0.05 K/mcL (0.00-0.30); Basophils % (Auto) 1.1 % (0.0-2.0); Eosinophils # (Auto) 0.08 K/mcL (0.00-0.70); Eosinophils % (Auto) 1.8 % (0.0-7.0); Hematocrit 36.2 % (34.1-44.9); Hemoglobin 12.6 g/dL (11.2-15.7); Lymphocytes # (Auto) 1.79 K/mcL (1.50-4.80); Lymphocytes % (Auto) 40.8 % (15.5-49.0); Mean Cell Volume 85.4 fL (80.0-100.0); Mean Corpuscular HGB Conc 34.8 g/dL (31.0-36.0); Monocytes # (Auto) 0.49 K/mcL (0.10-0.90); Monocytes % (Auto) 11.2 % (1.0-12.0); Neutrophils % (Auto) 45.1 % (38.0-78.0); Platelet Count 307 K/mcL (140-440); RBC 4.24 M/mcL (3.59-5.38); Red Cell Distribution Width 13.1 % (11.5-14.5); WBC 4.4 K/mcL (4.5-11.0)
[2024-03-30 06:11] LABS: Phosphorous 3.9 mg/dL (2.5-4.5)
[2024-03-30 06:27] LABS: ALT/SGPT 9 U/L (<40); AST/SGOT 12 U/L (<32); Albumin 3.6 gm/dL (3.2-5.2); Albumin/Globulin Ratio 1.5 (1.0-2.3); Alkaline Phosphatase 86 U/L (39-117); Bilirubin,Total 0.3 mg/dL (0.1-1.0); Blood Urea Nitrogen 11 mg/dL (6-20); Calcium 8.7 mg/dL (8.6-10.4); Carbon Dioxide 20 mmol/L (22-30); Chloride 106 mmol/L (96-108); Globulin 2.4 gm/dL (2.2-3.7); Glomerular Filtration Rate 117; Glucose 136 mg/dL (70-105); Potassium 3.4 mmol/L (3.3-5.1); Sodium 136 mmol/L (133-145)
[2024-03-30] MEDS: ACETAMINOPHEN 325 MG TABLET PO PRN (07:42)
== END 2024-03-30 10:50 | disposition home or self-care (01) | DRG 639 ==
LOC: ED 16:49 → ICU 19:30
PROVIDERS: ADMIT Internal Medicine; ATTEND Internal Medicine